=== PATIENT | female | born 1950 | race Native Hawaiian/Other Pacific Islander ===

== ENCOUNTER 2018-03-11 10:34 | Outpatient (CLI) | payer OTHER | END 2018-03-11 20:45 | disposition home or self-care (01) | LOC: MAMMO 10:34 | DX: Z12.31 Encounter for screening mammogram for malignant neoplasm of breast (principal) ==

== ENCOUNTER 2018-04-25 09:01 | Outpatient (CLI) | payer OTHER | END 2018-04-25 19:26 | disposition home or self-care (01) | LOC: MAMMO 09:01 | DX: R92.2 Inconclusive mammogram (principal) ==

== ENCOUNTER 2023-04-27 15:37 | Inpatient (IN) | payer OTHER ==
[2023-04-27] VITALS (13 sets, daily range): BP systolic 125–165; BP diastolic 42–78; TEMP 97.8–98.4; Ht 175.3 cm; Wt 83.6 kg
[~2023-04-27] VITALS: Ht 175.3 cm; Wt 83.6 kg
[2023-04-27 15:59] LABS: PLATELET COUNT 519 K/uL (152-353)
[2023-04-27 16:50] LABS: POTASSIUM 3.5 mmol/L (3.6-5.2)
[2023-04-27] MEDS ORDERED: VRAYLAR1.5 MG PO (20:24)
[2023-04-27] MEDS ORDERED: ALPRAZOLAM PO (20:24)
[2023-04-27] MEDS ORDERED: DEXL60CA4 PO (20:24)
[2023-04-27] MEDS ORDERED: METF500T PO (20:25)
[2023-04-27] MEDS ORDERED: AMLODIPINE BESYLATE PO (20:25)
[2023-04-27] MEDS ORDERED: BISO5TAB2 PO (20:26)
[2023-04-27] MEDS ORDERED: ATOR20TA2 PO (20:26)
[2023-04-27] MEDS ORDERED: AVAPRO300 MG PO (20:27)
[2023-04-27] MEDS ORDERED: DULO60CA2 PO (20:27)
[2023-04-27] MEDS ORDERED: NEURONTIN 100M100 MG PO (20:28)
[2023-04-28 04:00] VITALS: BP 138/68; TEMP 98.7
[2023-04-28 04:51] LABS: PLATELET COUNT 587 K/uL (152-353)
[2023-04-28 05:00] LABS: POTASSIUM 3.8 mmol/L (3.6-5.2)
[2023-04-28 08:00] VITALS: BP 146/73; BP 95/57; TEMP 97.5; TEMP 98.2
[2023-04-28 12:00] VITALS: BP 145/78; TEMP 98.1
[2023-04-28 16:00] VITALS: BP 112/67; TEMP 97.6
[2023-04-28 20:00] VITALS: BP 171/77; TEMP 97.7
[2023-04-29] VITALS: BP 182/92; TEMP 98
[2023-04-29 04:00] VITALS: BP 183/83; TEMP 98.4
[2023-04-29 05:44] LABS: PLATELET COUNT 634 K/uL (152-353)
[2023-04-29 05:57] LABS: POTASSIUM 3.9 mmol/L (3.6-5.2)
[2023-04-29 08:00] VITALS: BP 166/85; TEMP 97.6
[2023-04-29 11:57] VITALS: BP 197/94; TEMP 97.8
[2023-04-29 16:00] VITALS: BP 168/80; TEMP 97.6
[2023-04-29 20:00] VITALS: BP 188/86; TEMP 98.7
[2023-04-30] VITALS: BP 183/83; TEMP 98.6
[2023-04-30 04:00] VITALS: BP 167/74; TEMP 98.6
[2023-04-30 05:27] LABS: PLATELET COUNT 688 K/uL (152-353)
[2023-04-30 05:37] LABS: POTASSIUM 3.5 mmol/L (3.6-5.2)
[2023-04-30 08:00] VITALS: BP 177/91; TEMP 97.6
[2023-04-30 12:00] VITALS: BP 134/57; TEMP 98.7
[2023-04-30 16:00] VITALS: BP 172/75; TEMP 97.9
[2023-04-30 20:00] VITALS: BP 176/73; TEMP 97.8
[2023-05-01] VITALS: BP 181/81; TEMP 97.6
[2023-05-01 04:00] VITALS: BP 164/75; TEMP 97.9
[2023-05-01 05:56] LABS: POTASSIUM 3.9 mmol/L (3.6-5.2)
[2023-05-01 05:59] LABS: PLATELET COUNT 569 K/uL (152-353)
[2023-05-01 08:00] VITALS: BP 171/71; TEMP 97.5
[2023-05-01] MEDS ORDERED: PRED10TA27 PO (11:12)
[2023-05-01] MEDS ORDERED: CEFDINIR300 MG PO (11:12)
[2023-05-01 12:00] VITALS: BP 185/83; TEMP 97.9
[2023-05-01 16:04] VITALS: BP 167/80; TEMP 98.5
== END 2023-05-01 21:30 | disposition home or self-care (01) | DRG 93 ==
LOC: ED 15:37 → MED/SURG 18:15
PROVIDERS: Family Medicine; ADMIT Nurse Practitioner Family; ATTEND Internal Medicine Endocrinology, Diabetes & Metabolism
DX: G92.8 Other toxic encephalopathy (principal); R41.82 Altered mental status, unspecified; D72.828 Other elevated white blood cell count; D50.8 Other iron deficiency anemias; E11.65 Type 2 diabetes mellitus with hyperglycemia; F41.8 Other specified anxiety disorders; K21.9 Gastro-esophageal reflux disease without esophagitis; I10 Essential (primary) hypertension; R79.89 Other specified abnormal findings of blood chemistry; W19.XXXA Unspecified fall, initial encounter; Y92.89 Other specified places as the place of occurrence of the external cause
CPT/HCPCS: 36415; 80048; 80053; 80307; 80320; 81002; 82550; 82948; 83605; 84484; 85007; 85027; 85379; 87040; 93005; 96360; 96361; 96365; 96367; 96372; 96374; 96375; 96376; 99284; J0456; J1160; J1650; J1815; J2405; J2543; J2930; Q9963